=== PATIENT | male | born 1980 | race Caucasian/White ===

== ENCOUNTER 2016-12-09 11:59 | Emergency (ER) | payer OTHER ==
--- NOTE | ~2016-12-09 | US115 ---
[facility] A Service [facility] RADIOLOGY TEXT RESULTS PATIENT: ROSIE COX LOCATION: SED : [birth year] UNIT #: [id number] AGE: [address]: Anthony Magallon MD SEX: M ORDER DR: [id number] [place] [id number] E MR#: [id number] Acc #: [id number] NAME: ROSIE COX. : 1980 SEX: M STUDY DATE/TIME: 12/09/2016 12:43 UNIT: SED ROOM: STUDY DESCRIPTION: US Scrotum and Contents Attending Physician: Anthony Magallon M.D. Ordering Physician: Anthony Magallon M.D. Primary Care Physician: Justen Reed M.D. MEDICAL IMAGING REPORT This report is preliminary unless electronic signature is present. EXAM Scrotal Doppler ultrasound 12/09/2016. INDICATIONS Patient felt a pop in his scrotum and now has a burning sensation in the scrotum for 1 day. TECHNIQUE Chase-scale, color flow, and spectral Doppler waveform analysis was performed of the scrotum and contents. COMPARISON No comparison. FINDINGS Both testicles are morphologically normal, and both show perfusion by Doppler. There are no intratesticular masses. There is an epididymal head cyst or spermatocele on the right side, measuring up to 10 mm in size. There are trace bilateral hydroceles. The left epididymis is unremarkable. IMPRESSION 1. Testicles are normal. 2. Right epididymal head cyst or spermatocele measuring up to 10 mm in size. 3. Trace bilateral hydroceles. Dictated by... Abdon Zavala Jr., M.D. THIS IS AN ELECTRONICALLY VERIFIED REPORT [facility] A Service [facility] RADIOLOGY TEXT RESULTS PATIENT: ROSIE COX LOCATION: SED : 81 UNIT #: [id number] AGE: [address]: Anthony Magallon MD SEX: M ORDER DR: Abdon Zavala Jr., M.D. at 12/09/2016 4:39 PM YOLIS/diane TD: 12/09/2016 15:02 JOB #: [id number] MEDICAL IMAGING REPORT Page 1 of 1
--- NOTE | ~2016-12-09 | CT4 ---
[facility] A Service of [facility] RADIOLOGY TEXT RESULTS PATIENT: ROSIE COX LOCATION: SED : [birth year] UNIT #: [id number] AGE: [address]: Anthony Magallon MD SEX: M ORDER DR: [id number] [place] [id number] E MR#: [id number] Acc #: [id number] NAME: ROSIE COX : 1980 SEX: M STUDY DATE/TIME: 12/09/2016 12:51 UNIT: SED ROOM: STUDY DESCRIPTION: CT Abd and Pelv Wo Cont Attending Physician: Anthony Magallon M.D. Ordering Physician: Anthony Magallon M.D. Primary Care Physician: Justen Reed M.D. MEDICAL IMAGING REPORT This report is preliminary unless electronic signature is present. EXAM CT abdomen and pelvis without contrast, 12/09/2016 at 12:51 hours HISTORY 36-year-old man complaining of acute onset of right testicle pain this morning with low back pain today after having a bowel movement. COMPARISON CT abdomen, 01/09/2016 TECHNIQUE Helical noncontrasted images were obtained from the lung bases through the pubic symphysis without oral or intravenous contrast. Sagittal and coronal reconstructions were performed. Total exam DLP 1292 mGy-cm. This CT exam was performed with one or more of the following radiation dose reduction techniques: automatic exposure control, adjustment of mA and/or kV according to patient size, and iterative reconstruction. FINDINGS Images through the lung bases are clear. There is no pleural effusion. The distal esophagus is normal. Noncontrasted images through the abdomen demonstrate a normal appearance to the liver, spleen, pancreas, gallbladder and bile ducts. The adrenal glands are normal. The kidneys demonstrate no mass, stone or obstruction. There is no ureterectasis or ureteral calculus. The bladder is contracted but normal in appearance. The stomach and small bowel are unremarkable. The appendix is normal. [facility] A Service [facility] RADIOLOGY TEXT RESULTS PATIENT: ROSIE COX LOCATION: SED : [birth year] UNIT #: [id number] AGE: [address]: Anthony Magallon MD SEX: M ORDER DR: The colon is nondistended. There is no colonic wall thickening or inflammation seen. There are a few diverticula at the junction of descending colon and sigmoid colon. CT pelvis demonstrates a normal appearance to the seminal vesicles, prostate and rectum. No hernias are seen. IMPRESSION Negative noncontrasted CT of the abdomen and pelvis. Dictated by... Annika Sanford M.D. THIS IS AN ELECTRONICALLY VERIFIED REPORT Annika Sanford M.D. at 12/09/2016 5:22 PM MO/nathan TD: 12/09/2016 14:42 JOB #: [id number] MEDICAL IMAGING REPORT Page 1 of 1
[~2016-12-09 11:59] MED LIST: NO MEDICATIONS
[2016-12-09] MEDS ORDERED: MELATONIN1 MG (12:02)
[2016-12-09 12:37] LABS: BASOPHIL# 0.1 X10e3 (0-0.3); BASOPHIL% 0.6 % (0-2.5); EOSINOPHIL# 0.1 X10e3 (0-0.7); EOSINOPHIL% 1.7 % (0.0-7.0); HEMATOCRIT 48.7 % (38.0-50.0); HEMOGLOBIN 17.2 gm/dL (13.0-16.0); LYMPHOCYTE# 1.8 X10e3 (1.0-3.5); LYMPHOCYTE% 19.7 % (17.0-45.0); MEAN CELL VOLUME 90.4 FL (83-96); MEAN CORPUSCULAR HEMOGLOBIN 31.9 PG (28-34); MEAN CORPUSCULAR HGB CONC 35.3 g/dL (30-36); MEAN PLATELET VOLUME 7.8 FL (6.5-11.5); MONOCYTE# 0.6 X10e3 (0-1.0); MONOCYTE% 6.3 % (3.0-12.0); NEUTROPHIL# 6.4 X10e3 (1.5-7.1); NEUTROPHIL% 71.7 % (40-75); PLATELET COUNT 261 X10e3 (140-420); RED BLOOD COUNT 5.38 X10e (3.90-5.60); RED CELL DISTRIBUTION WIDTH 12.9 % (11.0-15.5)
[2016-12-09 12:41] LABS: URINE SOURCE CLEAN CATCH
[2016-12-09 12:44] LABS: DIFF IND NO; URINE APPEARANCE CLEAR; URINE BLOOD NEG (NEG); URINE COLOR YELLOW; URINE GLUCOSE NEG (NORM); URINE KETONE TRACE (NEG); URINE LEUKOCYTE ESTERASE NEG (NEG); URINE NITRATE NEG (NEG); URINE PROTEIN NEG (NEG); URINE SPECIFIC GRAVITY 1.025 (1.003-1.035)
[2016-12-09 12:47] LABS: MICRO INDICATED? NO; URINE BILIRUBIN NEG (NEG)
[2016-12-09 12:59] LABS: ALBUMIN SERUM 5.4 g/dL (3.5-5.0); BILIRUBIN, DIRECT 0.2 mg/dL (0.0-0.2); BILIRUBIN,INDIRECT 1.1 mg/dL (0.0-0.9); BILIRUBIN,TOTAL 1.3 mg/dL (0.2-2.0); BUN/CREATININE RATIO 15.45; CALCIUM SERUM 9.6 mg/dL (8.4-10.2); CREATININE SERUM 1.1 mg/dL (0.6-1.4); GLOM FILT RATE Estimated 86.5 mL/min (>60); POTASSIUM 3.9 mmol/L (3.5-5.1); PROTEIN TOTAL SERUM 8.7 g/dL (6.0-8.3)
== END 2016-12-09 14:44 | disposition home or self-care (01) ==
LOC: SED 11:59
PROVIDERS: Emergency Medicine
DX: N50.812 Left testicular pain (principal); R10.9 Unspecified abdominal pain
CPT/HCPCS: 36415; 74176; 76870; 80048; 80076; 81003; 85025; 96361; 96374; 99284; J1885